=== PATIENT | male | born 1950 | race Caucasian/White ===

== ENCOUNTER 2018-09-30 13:42 | Inpatient (IN) | payer MEDICARE ==
[~2018-09-30] VITALS: Ht 188 cm; Wt 81.0 kg
[~2018-09-30 13:42] MED LIST: ASPI-903 PO; MVI DAILY
[2018-09-30] MEDS ORDERED: DIPHTH/TET/ACEL PERTUSS (ADULT) 0.5 ML VIAL IM* ONE (16:30)
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
[2018-09-30] MEDS ORDERED: HYDR-4011 PO (17:46)
[2018-09-30] MEDS ORDERED: ONDANSETRON (ODT) 4 MG TAB ODT STA (20:14)
[2018-09-30] MEDS ORDERED: ONDANSETRON 4 MG INJ IV PRN (21:30)
[2018-09-30] MEDS ORDERED: ACETAMINOPHEN 325 MG TAB PO PRN (21:30)
[2018-09-30] MEDS ORDERED: FENTAnyl 50 MCG/ML VIAL IV ONE (22:30)
[2018-09-30 23:10] VITALS: Ht 188 cm; Wt 81.0 kg
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
[2018-10-01] MEDS ORDERED: ALBUTEROL/IPRATROPIUM (NEB) 3 ML AMP HHN PRN (00:30)
[2018-10-01] MEDS ORDERED: HYDROCODONE/APAP (5/325) TAB PO PRN ×2 (00:30)
[2018-10-01] MEDS ORDERED: NACL 0.9% 3 ML SYG IV SCH (00:30)
[2018-10-01] MEDS ORDERED: morphine 2 MG INJ IV PRN (00:30)
[2018-10-01] MEDS ORDERED: ACETAMINOPHEN 325 MG TAB PO PRN (00:30)
[2018-10-01] MEDS ORDERED: ONDANSETRON 4 MG INJ IV PRN (00:30)
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
[2018-10-01 02:44] VITALS: BP 132/63; PULSE 77; RESP 20
[2018-10-01] MEDS: SOD CHLORIDE 0.9% 1,000 ML IV SCH ×2 (06:47→17:22)
[2018-10-01 07:25] VITALS: BP 114/58; PULSE 75; RESP 17
[2018-10-01] MEDS ORDERED: HEPARIN 5,000 UNIT/1 ML VIAL SC SCH (09:00)
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
[2018-10-01] MEDS: METOPROLOL (XL) 25 MG TAB PO SCH (13:06)
[2018-10-01 15:02] VITALS: BP 119/59; PULSE 83; RESP 14
[2018-10-01] MEDS: HYDROCODONE/APAP (10/325) TAB PO PRN ×2 (17:22→21:24)
[2018-10-01 20:30] VITALS: BP 119/59; PULSE 81; RESP 16
[2018-10-02 02:33] VITALS: BP 114/63; PULSE 105; RESP 18
[2018-10-02] MEDS: SOD CHLORIDE 0.9% 1,000 ML IV SCH (05:56)
[2018-10-02] MEDS: DOCUSATE SODIUM 100 MG CAP PO PRN (06:05)
[2018-10-02] MEDS: HYDROCODONE/APAP (10/325) TAB PO PRN ×4 (06:06→18:39)
[2018-10-02 07:27] VITALS: BP 135/66; PULSE 75; RESP 18
[2018-10-02] MEDS: METOPROLOL (XL) 25 MG TAB PO SCH (08:46)
[2018-10-02] MEDS ORDERED: ENOXAPARIN 40 MG/0.4 ML SYG SC SCH (09:00)
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
[2018-10-02 14:02] VITALS: BP 142/67; PULSE 77; RESP 18
[2018-10-02] MEDS: BISACODYL (EC) 5 MG TAB PO PRN (14:19)
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
[2018-10-02 18:25] VITALS: BP 140/76; PULSE 76; RESP 18
[2018-10-02 20:05] VITALS: BP 134/64; PULSE 77; RESP 18
[2018-10-02] MEDS: POLYETHYLENE GLYCOL 17 GM PACKET PO SCH (21:30)
[2018-10-03 01:55] VITALS: BP 133/66; PULSE 76; RESP 18
[2018-10-03] MEDS: HYDROCODONE/APAP (10/325) TAB PO PRN ×2 (07:19→18:08)
[2018-10-03 08:00] VITALS: BP 149/50; PULSE 76; RESP 18
[2018-10-03] MEDS: DOCUSATE SODIUM 100 MG CAP PO PRN (09:04)
[2018-10-03] MEDS: POLYETHYLENE GLYCOL 17 GM PACKET PO SCH ×2 (09:05→21:10)
[2018-10-03] MEDS: METOPROLOL (XL) 25 MG TAB PO SCH (09:05)
[2018-10-03] MEDS: BISACODYL (EC) 5 MG TAB PO PRN (09:05)
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
[2018-10-03 11:25] VITALS: BP 139/62; PULSE 82; RESP 18
[2018-10-03] MEDS: METOPROLOL 25 MG TAB PO SCH ×2 (11:26→21:10)
[2018-10-03] MEDS: LISINOPRIL 5 MG TAB PO SCH (11:27)
[2018-10-03] MEDS: SOD FERRIC GLUC COMPLX 125 MG in SOD CHLORIDE 0.9% 100 ML IVPB SCH (13:23)
[2018-10-03 14:08] VITALS: BP 142/68; PULSE 70; RESP 18
[2018-10-03 20:30] VITALS: BP 132/60; PULSE 69; RESP 19
[2018-10-04 02:12] VITALS: BP 125/68; PULSE 65; RESP 18
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
[2018-10-04 08:30] VITALS: BP 129/65; PULSE 71; RESP 12
[2018-10-04] MEDS: POLYETHYLENE GLYCOL 17 GM PACKET PO SCH ×3 (08:44→21:00)
[2018-10-04] MEDS: LISINOPRIL 5 MG TAB PO SCH (08:44)
[2018-10-04] MEDS: METOPROLOL 25 MG TAB PO SCH ×2 (08:44→20:36)
[2018-10-04] MEDS: SOD FERRIC GLUC COMPLX 125 MG in SOD CHLORIDE 0.9% 100 ML IVPB SCH (13:20)
[2018-10-04 16:38] VITALS: BP 134/66; PULSE 76; RESP 17
--- NOTE | 2018-10-04 17:45 | PN ---
DATE: 10/04/2018 CT scan of the pelvis including revealed 3D reformation shows pelvic fracture involving left iliac wi ng with fracture line extending into weightbearing surface of the left acetabulum. There is a consid erable displacement of the iliac fracture and the fracture is extending into the left acetabular cavi ty including weightbearing surface of the left acetabulum. This patient needs pelvic surgery and for that reason, this patient needs a transfer to [facility] for higher level of care includin g open reduction and internal fixation of the pelvic fractures involving acetabulum. Dictated By: MARTI STEVE MD IK/NTS Conf#: [id number] DID#: [id number] CC: AMBROCIO THOMAS MD; CANDICE MITTAL MD;*End*
[2018-10-04 20:10] VITALS: BP 142/65; PULSE 80; RESP 20
[2018-10-05 02:29] VITALS: BP 139/67; PULSE 77; RESP 18
[2018-10-05 08:08] VITALS: BP 142/75; PULSE 74; RESP 18
[2018-10-05] MEDS: DOCUSATE SODIUM 100 MG CAP PO PRN (08:18)
[2018-10-05] MEDS: POLYETHYLENE GLYCOL 17 GM PACKET PO SCH ×2 (08:19→21:00)
[2018-10-05] MEDS: LISINOPRIL 5 MG TAB PO SCH (08:19)
[2018-10-05] MEDS: METOPROLOL 25 MG TAB PO SCH ×2 (08:19→21:13)
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
[2018-10-05] MEDS: SOD FERRIC GLUC COMPLX 125 MG in SOD CHLORIDE 0.9% 100 ML IVPB SCH (13:07)
[2018-10-05 15:41] VITALS: BP 138/70; PULSE 72; RESP 18
[2018-10-05 19:35] VITALS: BP 137/62; PULSE 76; RESP 20
[2018-10-05] MEDS: HYDROCODONE/APAP (10/325) TAB PO PRN (21:13)
[2018-10-06 02:35] VITALS: BP 120/58; PULSE 73; RESP 20
[2018-10-06 07:35] VITALS: BP 134/65; PULSE 71; RESP 18
[2018-10-06] MEDS: POLYETHYLENE GLYCOL 17 GM PACKET PO SCH (08:02)
[2018-10-06] MEDS: LISINOPRIL 5 MG TAB PO SCH (08:10)
[2018-10-06] MEDS: METOPROLOL 25 MG TAB PO SCH (08:11)
--- NOTE | 2018-10-06 09:27 | PN ---
Assessment/Plan VTE Prophylaxis Risk score (from Ns)>0 risk: 17 Assessment/Plan Result Diagram: 10/06/18 0441 10/05/18 0451 Results 24hrs Laboratory Tests Test 10/06/18 04:41 White Blood Count 8.3 Red Blood Count 2.57 L Hemoglobin 8.6 L Hematocrit 25.2 L Mean Corpuscular Volume 98.1 Mean Corpuscular Hemoglobin 33.5 H Mean Corpuscular Hemoglobin Concent 34.1 Red Cell Distribution Width 12.6 Platelet Count 233 Mean Platelet Volume 8.4 Immature Granulocytes % 1.300 H Neutrophils % 59.2 Lymphocytes % 20.2 Monocytes % 9.6 Eosinophils % 9.0 H Basophils % 0.7 Nucleated Red Blood Cells % 0.0 Immature Granulocytes # 0.110 H Neutrophils # 4.9 Lymphocytes # 1.7 Monocytes # 0.8 Eosinophils # 0.8 H Basophils # 0.1 Nucleated Red Blood Cells # 0.0 Exam/Review of Systems Exam Vitals Medications Medication MICHAEL JACKSON NP October 06, 2018 09:27
[2018-10-06] MEDS ORDERED: POLY17PO6 PO (11:37)
[2018-10-06] MEDS ORDERED: METO-448 PO (11:37)
[2018-10-06] MEDS ORDERED: LISI-313 PO (11:37)
[2018-10-06] MEDS ORDERED: MORP2CAR IV (11:37)
[2018-10-06] MEDS ORDERED: HYDR-3609 PO (11:37)
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
== END 2018-10-06 14:30 | disposition short-term general hospital (02) | DRG 535 ==
LOC: FTE 13:42 → MS1 21:24
PROVIDERS: ADMIT Internal Medicine; ATTEND Internal Medicine
PROC: 0HQ0XZZ Repair Scalp Skin, External Approach (ICD-10-PCS; principal; 2018-09-30)
DX: S32.512A Fracture of superior rim of left pubis, initial encounter for closed fracture (principal); S32.492A Other specified fracture of left acetabulum, initial encounter for closed fracture; S06.0X1A Concussion with loss of consciousness of 30 minutes or less, initial encounter; S22.42XA Multiple fractures of ribs, left side, initial encounter for closed fracture; N17.9 Acute kidney failure, unspecified; S42.022A Displaced fracture of shaft of left clavicle, initial encounter for closed fracture; S01.01XA Laceration without foreign body of scalp, initial encounter; R58 Hemorrhage, not elsewhere classified; I48.91 Unspecified atrial fibrillation; I10 Essential (primary) hypertension; D64.9 Anemia, unspecified; Y93.55 Activity, bike riding; Z23 Encounter for immunization
CPT/HCPCS: 36415; 70450; 71045; 72192; 73030; 73510; 80048; 80053; 82270; 82607; 82728; 82746; 82962; 83036; 83540; 83735; 84100; 84443; 85014; 85018; 85025; 85610; 86850; 86900; 86901; 90471; 90715; 93005; J1644; J1650; J2270; J2916; J3010; J7030